=== PATIENT | female | born 1975 | race Caucasian/White ===

== ENCOUNTER 2019-12-06 14:14 | Inpatient (IN) | payer MEDICAID ==
[~2019-12-06] VITALS: Ht 160 cm; Wt 76.7 kg
[2019-12-06] MEDS ORDERED: FLUO-191 PO (19:44)
[2019-12-06] MEDS ORDERED: ZOLPIDEM TARTRATE 10 MG TABLET PO PRN (20:00)
[2019-12-06] MEDS ORDERED: HALOPERIDOL 5 MG TABLET PO PRN (20:00)
[2019-12-06] MEDS ORDERED: LORazepam 2 MG TABLET PO PRN (20:00)
[2019-12-06] MEDS ORDERED: INFLUENZA VIRUS VACCINE QVS 2019-20 (3YR+)/PF 60 MCG/0.5 ML SYRINGE IM ONE ×2 (20:15→22:00)
[2019-12-06 21:32] VITALS: BP 99/64
[2019-12-07 01:54] VITALS: BP 102/66
[2019-12-07 08:49] VITALS: BP 109/64
[2019-12-07 17:22] VITALS: BP 104/71
[2019-12-08 00:18] VITALS: BP 117/79
[2019-12-08 08:28] VITALS: BP 107/65
== END 2019-12-08 13:35 | disposition home or self-care (01) | DRG 754 ==
LOC: B2S 19:53
PROVIDERS: ADMIT Psychiatry & Neurology Psychiatry; ATTEND Psychiatry & Neurology Psychiatry
DX: F32.9 Major depressive disorder, single episode, unspecified (principal); Z28.21 Immunization not carried out because of patient refusal
CPT/HCPCS: 87081